=== PATIENT | male | born 2000 | race Caucasian/White ===

== ENCOUNTER 2023-07-20 11:29 | Emergency (ER) | payer OTHER, SELFPAY ==
[2023-07-20 11:38] VITALS: BP 137/74; PULSE 67; RESP 14; TEMP 36.5; O2SAT 98; BMI 29.0
[2023-07-20] MEDS: ONDANSETRON 4 MG ODT PO (11:46)
[2023-07-20 12:04] LABS: COVID19 -Nasal RAPID Negative (Negative)
--- NOTE | 2023-07-20 12:24 | ED.HA ---
HPI - Headache <Stacey Parham PA-C - Last Filed: 07/20/23 13:50> General Chief Complaint: Headache Stated Complaint: headache/Vomiting/overheating Time Seen by Provider: 07/20/23 11:53 Mode of arrival: Ambulatory History of Present Illness HPI Narrative: 23-year-old male with no reported past medical history presents to the ED with 1 day of headache. Patient states that he woke up at 2:00 a.m. this morning for his work shift, head started about 3:00 a.m. and has worsened since then. Patient reports a bilateral, frontal headache accompanied with nausea. Patient endorses 3 episodes of vomiting. Patient denies photophobia, endorses phonophobia. No vision changes. Patient states that he has had headaches in the past, however not recently. Patient denies fever, chills, neck pain, neck stiffness, rhinorrhea, nasal congestion, cough, sore throat. Patient endorses COVID exposure at work from to colleagues were diagnosed with COVID-19. Related Data Home Medications Medication Instructions Recorded Confirmed No Known Home Medications 07/20/23 07/20/23 Allergies Allergy/AdvReac Type Severity Reaction Status Date / Time No Known Drug Allergies Allergy Verified 07/20/23 11:42 Review of Systems <Stacey Parham PA-C - Last Filed: 07/20/23 13:50> Constitutional Constitutional: Denies chills, Denies fatigue, Denies fever(s), Denies frequent falls, Reports headache(s), Denies lethargy and Denies weakness Eyes Eyes: Denies change in vision, Denies eye discharge, Denies irritation and Denies loss of vision ENT Ears, Nose, Mouth, and Throat: Denies change in voice, Denies dizziness, Reports headache(s), Denies neck pain, Denies sore throat and Denies throat swelling Comments: Phonophobia Cardiovascular Cardiovascular: Denies chest pain, Denies irregular heart rhythm, Denies lightheadedness, Denies palpitations, Denies dyspnea, Denies dyspnea on exertion and Denies orthopnea Respiratory Respiratory: Denies cough, Denies dyspnea, Denies dyspnea on exertion and Denies wheezing Gastrointestinal Gastrointestinal: Denies abdominal pain, Denies change in bowel habits, Denies diarrhea, Reports nausea and Reports vomiting Musculoskeletal Musculoskeletal: Denies neck pain and Denies numbness Integumentary/Breasts Skin/Breast: Denies pruritus, Denies erythema, Denies rash and Denies wounds Neurologic Neurologic: Denies behavioral changes, Denies confusion, Denies dizziness, Denies frequent falls, Reports headache(s), Denies loss of vision, Denies numbness and Denies weakness Psychiatric Psychiatric: Denies anxiety, Denies behavioral changes, Denies confusion, Denies depression, Denies homicidal ideation and Denies suicidal ideation Endocrine Endocrine: Denies fatigue, Denies flushing and Denies palpitations Hematologic/Lymphatic Hematologic/Lymphatic: Denies easy bruising Allergic/Immunologic Allergic/Immunologic: Denies urticaria, Denies throat swelling and Denies wheezing Patient History <Stacey Parham PA-C - Last Filed: 07/20/23 13:50> Social History Smoking Status: Never smoker Smoking Status: Never smoker alcohol intake frequency: 0-2 drinks per day Substance Use Type: does not use Exam <Stacey Parham PA-C - Last Filed: 07/20/23 13:50> Narrative Exam Narrative: Const General:?cooperative, healthy appearing and comfortable [facility] Head:?normal to inspection Ears:?hearing grossly normal bilaterally Nose:?external nose normal Face and sinus:?normal facial exam and sinuses nontender Mouth:?oral mucosae normal Throat:?posterior oropharynx normal Eyes General:?appearance normal, both eyes and all related structures Neck Neck:?normal visual inspection and no lymphadenopathy noted Resp Effort & Inspection:?normal respiratory effort Auscultation:?clear to auscultation bilaterally Cardio Rate:?regular rate Rhythm:?regular rhythm Neuro General:?patient alert, patient awake and patient oriented x3; PERRLA; CN 1 through 12 intact bilaterally; gait normal Initial Vital Signs Initial Vital Signs: Vital Signs Temperature 97.7 F 07/20/23 11:38 Pulse Rate 67 07/20/23 11:38 Respiratory Rate 14 07/20/23 11:38 Blood Pressure 137/74 07/20/23 11:38 Pulse Oximetry 98 07/20/23 11:38 Oxygen Delivery Method Room Air 07/20/23 11:38 <Ravi Zarate DO - Last Filed: 07/20/23 14:51> Initial Vital Signs Initial Vital Signs: Vital Signs Temperature 97.7 F 07/20/23 11:38 Pulse Rate 67 07/20/23 11:38 Respiratory Rate 14 07/20/23 11:38 Blood Pressure 137/74 07/20/23 11:38 Pulse Oximetry 98 07/20/23 11:38 Oxygen Delivery Method Room Air 07/20/23 11:38 Course <Stacey Parham PA-C - Last Filed: 07/20/23 13:50> Orders Ordered: ED Orders 07/20/23 11:45 COVID19 -Nasal RAPID Stat Discontinued Medications Acetaminophen (Acetaminophen 325 Mg Tablet) 975 mg PO NOW ONE Stop: 07/20/23 12:19 Last Admin: 07/20/23 12:31 Dose: 975 mg Documented By: Diphenhydramine HCl (Diphenhydramine 50 Mg/Ml Vial) 25 mg IV NOW ONE Stop: 07/20/23 12:19 Last Admin: 07/20/23 12:32 Dose: 25 mg Documented By: Sodium Chloride (Normal Saline 0.9%) 1,000 mls @ 1,000 mls/hr IV BOLUS ONE Stop: 07/20/23 13:17 Last Infusion: 07/20/23 13:22 Dose: Infused Documented By: Admin: 07/20/23 12:37 Dose: 1,000 mls/hr Documented By: Ketorolac Tromethamine (Ketorolac 30 Mg/Ml Vial) 15 mg IV NOW ONE Stop: 07/20/23 12:19 Last Admin: 07/20/23 12:33 Dose: 15 mg Documented By: Metoclopramide HCl (Metoclopramide 10 Mg/2 Ml Inj) 10 mg IV NOW ONE Stop: 07/20/23 12:19 Last Admin: 07/20/23 12:32 Dose: 10 mg Documented By: Ondansetron HCl (Ondansetron 4 Mg Odt) 4 mg PO NOW ONE Stop: 07/20/23 11:44 Last Admin: 07/20/23 11:46 Dose: 4 mg Documented By: SERA Vital Signs Vital signs: Vital Signs - 8 hr 07/20/23 11:38 07/20/23 13:26 Temperature 97.7 F Pulse Rate 67 66 Respiratory Rate 14 16 Blood Pressure 137/74 126/65 Pulse Oximetry 98 100 Oxygen Delivery Method Room Air Room Air <Ravi Zarate DO - Last Filed: 07/20/23 14:51> Orders Ordered: ED Orders 07/20/23 11:45 COVID19 -Nasal RAPID Stat Discontinued Medications Acetaminophen (Acetaminophen 325 Mg Tablet) 975 mg PO NOW ONE Stop: 07/20/23 12:19 Last Admin: 07/20/23 12:31 Dose: 975 mg Documented By: Diphenhydramine HCl (Diphenhydramine 50 Mg/Ml Vial) 25 mg IV NOW ONE Stop: 07/20/23 12:19 Last Admin: 07/20/23 12:32 Dose: 25 mg Documented By: Sodium Chloride (Normal Saline 0.9%) 1,000 mls @ 1,000 mls/hr IV BOLUS ONE Stop: 07/20/23 13:17 Last Infusion: 07/20/23 13:22 Dose: Infused Documented By: Admin: 07/20/23 12:37 Dose: 1,000 mls/hr Documented By: Ketorolac Tromethamine (Ketorolac 30 Mg/Ml Vial) 15 mg IV NOW ONE Stop: 07/20/23 12:19 Last Admin: 07/20/23 12:33 Dose: 15 mg Documented By: Metoclopramide HCl (Metoclopramide 10 Mg/2 Ml Inj) 10 mg IV NOW ONE Stop: 07/20/23 12:19 Last Admin: 07/20/23 12:32 Dose: 10 mg Documented By: Ondansetron HCl (Ondansetron 4 Mg Odt) 4 mg PO NOW ONE Stop: 07/20/23 11:44 Last Admin: 07/20/23 11:46 Dose: 4 mg Documented By: SERA Vital Signs Vital signs: Vital Signs - 8 hr 07/20/23 11:38 07/20/23 13:26 Temperature 97.7 F Pulse Rate 67 66 Respiratory Rate 14 16 Blood Pressure 137/74 126/65 Pulse Oximetry 98 100 Oxygen Delivery Method Room Air Room Air MDM - Headache <Stacey Parham PA-C - Last Filed: 07/20/23 13:50> Lab Data Labs: Lab Results 07/20/23 Range/Units 11:45 SARS-CoV-2 (PCR) Negative (Negative) MDM Narrative Medical decision making narrative: 23-year-old male with no reported past medical history presents to the ED with 1 day of headache. Concern for COVID-19 infection versus primary headache versus other. COVID-19 test was negative. Patient's symptoms most consistent with a primary headache. Will treat with IV fluids, Reglan, ketorolac, Tylenol, Benadryl. Will reassess. Patient's symptoms resolved with medications. Recommend follow-up with PCP as soon as possible. ED return precautions were discussed with patient. Patient verbalized understanding. Medical records reviewed: Yes <Ravi Zarate DO - Last Filed: 07/20/23 14:51> Lab Data Labs: Lab Results 07/20/23 Range/Units 11:45 SARS-CoV-2 (PCR) Negative (Negative) Discharge Plan Departure Patient Disposition: Home Clinical Impression: Headache Instructions: DI for Headache Activity Restrictions/Additional Instructions: You were evaluated in the ED today for a headache. Your symptoms resolved with administration of IV fluids, Reglan, ketorolac, Tylenol, Benadryl. Please continue to stay well hydrated. You may also take Tylenol or ibuprofen if your symptoms recur. Please follow-up with your PCP as soon as possible. Return to the ED if you have worsening symptoms, persistent vomiting. Prescriptions: No Action No Known Home Medications Referrals: Provider,Prieto GOMEZ [Primary Care Provider] - Stand Alone Forms: Patient Portal/API, Work Release Note ED Sign-out <DO Jorge Carvajal Filed: 07/20/23 14:51> Cosign ED Attending Cosignature Attestation: Dr Zarate Co-Sign Statement: I was available for consultation during this patient's emergency department visit. This chart is signed by myself for administrative purposes only. I did not have direct contact with this patient during this visit. They were seen independently by the APC.
[2023-07-20] MEDS: ACETAMINOPHEN 325 MG TABLET 975 MG PO (12:31)
[2023-07-20] MEDS: METOCLOPRAMIDE 10 MG/2 ML INJ IV (12:32)
[2023-07-20] MEDS: diphenhydrAMINE 50 MG/ML VIAL 25 MG IV (12:32)
[2023-07-20] MEDS: KETOROLAC 30 MG/ML VIAL 15 MG IV (12:33)
[2023-07-20] MEDS: SODIUM CHLORIDE 0.9% 1,000 ML 1000 ML IV (12:37)
[2023-07-20 13:26] VITALS: BP 126/65; PULSE 66; RESP 16; O2SAT 100
== END 2023-07-20 13:37 | disposition home or self-care (01) ==
PROVIDERS: Emergency Medicine; Emergency Provider Student in an Organized Health Care Education/Training Program
DX: R51.9 Headache, unspecified (principal); Z20.822 Contact with and (suspected) exposure to COVID-19
CPT/HCPCS: 87635; 96361; 96374; 96375; 99284; C9803; J1200; J1885; J2765

== ENCOUNTER 2024-01-30 23:50 | Emergency (ER) | payer OTHER, SELFPAY ==
[2024-01-30 23:54] VITALS: BP 159/101; PULSE 82; RESP 20; TEMP 36.6; O2SAT 99; BMI 28.8
--- NOTE | 2024-01-30 23:56 | ED.PSYCH ---
HPI - Psych <Yanet Painter DO - Last Filed: 02/01/24 00:51> General Chief Complaint: Psychiatric Symptoms Stated Complaint: SI Time Seen by Provider: 01/30/24 23:55 Source: patient, RN notes reviewed and old records reviewed Mode of arrival: Ambulatory Limitations: no limitations History of Present Illness HPI Narrative: 23-year-old with history of depressive symptoms for the past 8 months recently started on Prozac 2 days ago has had 2 doses total and started counseling in the last week. Patient states he has had thoughts of suicide but with increasing frequency over the past several months. He describes increasingly intrusive thoughts. 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 He states no wish or thoughts to harm others. Patient states symptoms are worse at work he states does not feel particularly supported although he presents with 2 friends from work who he states are very supportive. He states he feels better when he is at home with his and does not have these thoughts or these feelings. He denies any hallucinations. Patient states he did have one prior episode when he 1st in the where he was quite depressed but never sought help. Patient states otherwise he has never had any treatment or ever been inpatient. He feels the most helpful thing would be to remove himself from his current work situation. He is unsure about inpatient stay. He is never taken any regular medications. He has not on any prescription medications, only surgeries prior include wisdom teeth. No tobacco, occasional alcohol but none recently. No marijuana or street drugs. Related Data Home Medications Medication Instructions Recorded Confirmed No Known Home Medications 07/20/23 07/20/23 Allergies Allergy/AdvReac Type Severity Reaction Status Date / Time No Known Drug Allergies Allergy Verified 01/30/24 23:54 Review of Systems <Yanet Painter DO - Last Filed: 02/01/24 00:51> Review of Systems ROS Unobtainable: All systems reviewed & are unremarkable except as noted in HPI and below Patient History <Yanet Painter DO - Last Filed: 02/01/24 00:51> Social History Smoking Status: Never smoker Smoking Status: Never smoker alcohol intake frequency: 0-2 drinks per day Substance Use Type: does not use Exam <Yanet Painter DO - Last Filed: 02/01/24 00:51> Narrative Exam Narrative: GENERAL: Alert and oriented x three, male in moderate distress. Patient is tearful during discussion. HEENT: Head normocephalic, atraumatic, EOMI, pupils reactive, face symmetric, moist mucous membranes NECK: Supple, full range of motion CARDIOVASCULAR: Regular rate and rhythm without murmurs, rubs or gallops. RESPIRATORY: Breath sounds equal bilaterally, no wheezes rales or rhonchi. ABDOMEN: Soft, nontender. Normoactive bowel sounds all 4 quadrants. No guarding or rebound, rigidity, no mass : No CVA tenderness EXTREMITIES: Normal range of motion, no clubbing or edema. Neurovascularly intact NEUROLOGICAL: Cranial nerves II through XII grossly intact. Moving all extremities SKIN: Warm, dry, no petechiae, no rashes or lesions. PSYCH: Suicidal ideation with intrusive thoughts, no homicidal ideation or intent. No hallucinations. Initial Vital Signs Initial Vital Signs: Vital Signs Temperature 97.8 F 01/30/24 23:54 Pulse Rate 82 01/30/24 23:54 Respiratory Rate 20 01/30/24 23:54 Blood Pressure 159/101 H 01/30/24 23:54 Pulse Oximetry 99 01/30/24 23:54 Oxygen Delivery Method Room Air 01/30/24 23:54 <Mitchell Chapman MD - Last Filed: 01/31/24 16:33> Initial Vital Signs Initial Vital Signs: Vital Signs Temperature 97.8 F 01/30/24 23:54 Pulse Rate 82 01/30/24 23:54 Respiratory Rate 20 01/30/24 23:54 Blood Pressure 159/101 H 01/30/24 23:54 Pulse Oximetry 99 01/30/24 23:54 Oxygen Delivery Method Room Air 01/30/24 23:54 Course <Yanet Painter DO - Last Filed: 02/01/24 00:51> Orders Ordered: Discontinued Medications Lorazepam (Lorazepam 0.5 Mg Tablet) 1 mg PO NOW ONE Stop: 01/31/24 00:15 Last Admin: 01/31/24 00:28 Dose: 1 mg Documented By: CF Vital Signs Vital signs: Vital Signs - 8 hr 01/31/24 08:47 01/31/24 12:29 Pulse Rate 76 98 H Respiratory Rate 16 16 Blood Pressure 143/76 H 132/89 Pulse Oximetry 100 98 Oxygen Delivery Method Room Air Room Air <Mitchell Chapman MD - Last Filed: 01/31/24 16:33> Orders Ordered: Discontinued Medications Lorazepam (Lorazepam 0.5 Mg Tablet) 1 mg PO NOW ONE Stop: 01/31/24 00:15 Last Admin: 01/31/24 00:28 Dose: 1 mg Documented By: CF Vital Signs Vital signs: Vital Signs - 8 hr 01/31/24 08:47 01/31/24 12:29 Pulse Rate 76 98 H Respiratory Rate 16 16 Blood Pressure 143/76 H 132/89 Pulse Oximetry 100 98 Oxygen Delivery Method Room Air Room Air MDM - Psych <Yanet Painter DO - Last Filed: 02/01/24 00:51> Lab Data 01/31/24 00:36 01/31/24 00:36 Labs: Lab Results 01/31/24 01/31/24 Range/Units 00:36 02:05 WBC 10.4 (4.5-11.0) X10^3/uL RBC 5.29 (4.5-5.9) X10^6/uL Hgb 15.1 (13.5-17.5) g/dL Hct 43.0 (41-53) % MCV 81.3 (80-100) fL MCH 28.6 (26-34) PG MCHC 35.2 (30-36) % RDW 13.0 (11.6-14.8) % Plt Count 322 (150-400) X10^3/uL Neut % (Auto) 69.9 (50-75) % Lymph % (Auto) 20.8 L (25-40) % [place] % (Auto) 7.5 (3-14) % Eos % (Auto) 1.5 L (2-4) % Baso % (Auto) 0.3 (0-2) % Neut # (Auto) 7300 H (9473-8882) /uL Lymph # (Auto) 2200 (3002-8495) /uL [place] # (Auto) 800 (0-900) /uL Eos # (Auto) 200 (0-450) /uL Baso # (Auto) 0 (0-100) /uL Sodium 139 (137-145) mmol/L Potassium 3.8 (3.4-5.1) mmol/L Chloride 110 H (98-107) mmol/L Carbon Dioxide 23 (22-32) mmol/L BUN 13 (9-20) mg/dL Creatinine 0.96 (0.66-1.25) mg/dL Estimated GFR > 60 (>60) mL/min BUN/Creatinine Ratio 13.5 (6-22) Glucose 109 H (70-100) mg/dL Calcium 9.5 (8.4-10.2) mg/dL Total Bilirubin 1.0 (0.2-1.3) mg/dL AST 24 (17-59) IU/L ALT 22 (<50) IU/L Alkaline Phosphatase 96 (38-126) U/L Total Protein 7.4 (6.3-8.2) g/dL Albumin 4.6 (3.5-5.0) g/dL Globulin 2.8 (1.7-4.1) g/dL Albumin/Globulin Ratio 1.6 (1.0-2.8) TSH 1.28 (0.47-4.68) uIU/mL Salicylates < 1.0 (<20) mg/dL U Opiates 300ng/mL cut Negative (Negative) Ur Oxycodone Screen Negative (Negative) Urine Methadone Screen Negative (Negative) Acetaminophen < 10 (10-30) ug/mL Ur Barbiturates Screen Negative (Negative) U Tricyclic Antidepress Negative (Negative) Ur Phencyclidine Scrn Negative (Negative) Ur Amphetamines Screen Negative (Negative) U Methamphetamines Scrn Negative (Negative) Ur MDMA Scrn (Ecstasy) Negative (Negative) U Benzodiazepines Scrn Negative (Negative) Urine Cocaine Screen Negative (Negative) U Marijuana (THC) Screen Negative (Negative) Urine pH TNP Urine Specific [place] TNP Ethyl Alcohol < 10 ( - 10) mg/dL Ur Creatinine TNP MDM Narrative Medical decision making narrative: 23-year-old male with about 8 months of suicidal ideation with increasing intensity and frequency which he started describes becoming intrusive was recently started on Prozac in his only had 2 doses total. Patient states symptoms are considerably worse today and he reached out to friends who brought him here. Patient notes there is a situational component to feeling unsupported at work and then what he is at home he actually safer and has less thoughts and does not wish to harm himself at home. He finds support from his . He has 2 friends here he describes as supportive. Has never had any inpatient stays. He describes thoughts that are intrusive but without intent. He does have access to firearms at work. Labs Show chloride 10 otherwise appropriate, Urine drug screen is negative. Patient is medically cleared. Patient was given a dose of oral Ativan. Discussed with patient plan to meet with ACCOUNTS PAYABLE TECHNICIAN in the morning. Patient does note good support with his spouse. He has recently initiated counseling, has had 2 doses of Prozac which may be having an activated and affect as well. Does note that he was brought here by 2 work friends who he finds supportive and helpful. also arrived. Patient signed out to Dr. Chapman while awaiting evaluation with ACCOUNTS PAYABLE TECHNICIAN. <Mitchell Chapman MD - Last Filed: 01/31/24 16:33> Lab Data Labs: Lab Results 01/31/24 01/31/24 Range/Units 00:36 02:05 WBC 10.4 (4.5-11.0) X10^3/uL RBC 5.29 (4.5-5.9) X10^6/uL Hgb 15.1 (13.5-17.5) g/dL Hct 43.0 (41-53) % MCV 81.3 (80-100) fL MCH 28.6 (26-34) PG MCHC 35.2 (30-36) % RDW 13.0 (11.6-14.8) % Plt Count 322 (150-400) X10^3/uL Neut % (Auto) 69.9 (50-75) % Lymph % (Auto) 20.8 L (25-40) % [place] % (Auto) 7.5 (3-14) % Eos % (Auto) 1.5 L (2-4) % Baso % (Auto) 0.3 (0-2) % Neut # (Auto) 7300 H (7145-2608) /uL Lymph # (Auto) 2200 (4605-0798) /uL [place] # (Auto) 800 (0-900) /uL Eos # (Auto) 200 (0-450) /uL Baso # (Auto) 0 (0-100) /uL Sodium 139 (137-145) mmol/L Potassium 3.8 (3.4-5.1) mmol/L Chloride 110 H (98-107) mmol/L Carbon Dioxide 23 (22-32) mmol/L BUN 13 (9-20) mg/dL Creatinine 0.96 (0.66-1.25) mg/dL Estimated GFR > 60 (>60) mL/min BUN/Creatinine Ratio 13.5 (6-22) Glucose 109 H (70-100) mg/dL Calcium 9.5 (8.4-10.2) mg/dL Total Bilirubin 1.0 (0.2-1.3) mg/dL AST 24 (17-59) IU/L ALT 22 (<50) IU/L Alkaline Phosphatase 96 (38-126) U/L Total Protein 7.4 (6.3-8.2) g/dL Albumin 4.6 (3.5-5.0) g/dL Globulin 2.8 (1.7-4.1) g/dL Albumin/Globulin Ratio 1.6 (1.0-2.8) TSH 1.28 (0.47-4.68) uIU/mL Salicylates < 1.0 (<20) mg/dL U Opiates 300ng/mL cut Negative (Negative) Ur Oxycodone Screen Negative (Negative) Urine Methadone Screen Negative (Negative) Acetaminophen < 10 (10-30) ug/mL Ur Barbiturates Screen Negative (Negative) U Tricyclic Antidepress Negative (Negative) Ur Phencyclidine Scrn Negative (Negative) Ur Amphetamines Screen Negative (Negative) U Methamphetamines Scrn Negative (Negative) Ur MDMA Scrn (Ecstasy) Negative (Negative) U Benzodiazepines Scrn Negative (Negative) Urine Cocaine Screen Negative (Negative) U Marijuana (THC) Screen Negative (Negative) Urine pH TNP Urine Specific [place] TNP Ethyl Alcohol < 10 ( - 10) mg/dL Ur Creatinine TNP MDM Narrative Medical decision making narrative: 23-year-old male with about 8 months of suicidal ideation with increasing intensity and frequency which he started describes becoming intrusive was recently started on Prozac in his only had 2 doses total. Patient states symptoms are considerably worse today and he reached out to friends who brought him here. Patient notes there is a situational component to feeling unsupported at work and then what he is at home he actually safer and has less thoughts and does not wish to harm himself at home. He finds support from his . He has 2 friends here he describes as supportive. Has never had any inpatient stays. He describes thoughts that are intrusive but without intent. He does have access to firearms at work. Labs Show chloride 10 otherwise appropriate, Urine drug screen is negative. Patient is medically cleared. Patient was given a dose of oral Ativan. Discussed with patient plan to meet with ACCOUNTS PAYABLE TECHNICIAN in the morning. Patient does note good support with his spouse. He has recently initiated counseling, has had 2 doses of Prozac which may be having an activated and affect as well. Does note that he was brought here by 2 work friends who he finds supportive and helpful. also arrived. Patient signed out to Dr. Chapman while awaiting evaluation with ACCOUNTS PAYABLE TECHNICIAN. January 31, 2024 at 7:00 a.m Ari: ?sign out from Dr Painter patient is voluntary. Labs are completed. Patient is medically clear. Awaiting for social work. Patient is moderate risk however has no intention of hurting himself or any plans. 7:30 a.m.. Spoke with patient and he does agree and understand need for social work evaluation this morning. Has no further complaints at this time. 11:00 a.m. Kayla, social work seeing patient and for evaluation 12:15 p.m.. Kayla has spoken with patient and . Contract for safety established. Patient denies denies SI or HI at this time. They do agree for discharge home and are comfortable with this. 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 I did update patient that the medication he just started 2 days ago may take up to 2-5 weeks to be effective. He does understand. Again, does not want to hurt himself or others at this time. He desires discharge home Discharge Plan Departure Patient Disposition: Home Clinical Impression: Suicidal ideation, Acute anxiety Clinical Impression: (Ruled Out): Acute psychosis Instructions: DI for Anxiety -- Adult, How to Create a Suicide Prevention Safety Plan Activity Restrictions/Additional Instructions: Please see your provider and counselor this week. Continue home medications. Work note has been provided for you. Return immediately if worse if any questions or concerns. Today's laboratory studies are reassuring. Your new medication will take up to 4-5 weeks to be effective. Please do continue taking it. Prescriptions: No Action No Known Home Medications Referrals: Provider,Prieto GOMEZ [Primary Care Provider] - Stand Alone Forms: Patient Portal/API, Work Release Note
[2024-01-31] MEDS: LORazepam 0.5 MG TABLET 1 MG PO (00:28)
[2024-01-31 00:48] LABS: Add Manual Diff / Slide Review NO; Basophils Absolute Auto 0 /uL (0-100); Basophils Percent Auto 0.3 % (0-2); Eosinophils Absolute Auto 200 /uL (0-450); Eosinophils Percent Auto 1.5 % (2-4); Hemoglobin 15.1 g/dL (13.5-17.5); Lymphocytes Absolute Auto 2200 /uL (1100-4500); Lymphocytes Percent Auto 20.8 % (25-40); Mean Corpuscular HGB Conc 35.2 % (30-36); Mean Corpuscular Hemoglobin 28.6 PG (26-34); Mean Corpuscular Volume 81.3 fL (80-100); Monocytes Absolute Auto 800 /uL (0-900); Monocytes Percent Auto 7.5 % (3-14); Neutrophils Absolute Auto 7300 /uL (1500-7000); Neutrophils Percent Auto 69.9 % (50-75); Platelet Count 322 X10^3/uL (150-400); Red Blood Cell Count 5.29 X10^6/uL (4.5-5.9); White Blood Cell Count 10.4 X10^3/uL (4.5-11.0)
[2024-01-31 00:57] LABS: Acetaminophen < 10 ug/mL (10-30); Alanine Aminotransferase 22 IU/L (<50); Albumin 4.6 g/dL (3.5-5.0); Albumin Globulin Ratio 1.6 (1.0-2.8); Alkaline Phosphatase 96 U/L (38-126); Aspartate Aminotransferase 24 IU/L (17-59); BUN Creatinine Ratio 13.5 (6-22); Blood Urea Nitrogen 13 mg/dL (9-20); Calcium 9.5 mg/dL (8.4-10.2); Carbon Dioxide 23 mmol/L (22-32); Chloride 110 mmol/L (98-107); Estimated Glomerular Filt Rate > 60 mL/min (>60); Ethanol (ETOH) < 10 mg/dL; Globulin 2.8 g/dL (1.7-4.1); Glucose 109 mg/dL (70-100); HEMOLYSIS < 15 (0-50); Potassium 3.8 mmol/L (3.4-5.1); Salicylate < 1.0 mg/dL (<20); Sodium 139 mmol/L (137-145); Total Protein 7.4 g/dL (6.3-8.2)
[2024-01-31 02:05] LABS: TSH w/ Reflex to FT4 1.28 uIU/mL (0.47-4.68)
[2024-01-31 02:29] LABS: Urine Amphetamines Negative (Negative); Urine Barbiturates Negative (Negative); Urine Benzodiazepines Negative (Negative); Urine Cocaine Negative (Negative); Urine MDMA Negative (Negative); Urine Methadone Negative (Negative); Urine Methamphetamines Negative (Negative); Urine Opiates Negative (Negative); Urine Oxycodone Negative (Negative); Urine Phencyclidine Negative (Negative); Urine THC Negative (Negative); Urine Tricyclic Antidepressant Negative (Negative)
--- NOTE | 2024-01-31 07:26 | PC.NURSE ---
Report received, care assumed. Pt lying on side in stretcher, appears to be sleeping, equal chest rise and fall noted, nad. visitor at bedside, also sleeping. 15min safety checks in place by chemical technician.
--- NOTE | 2024-01-31 08:13 | PC.NURSE ---
morning safety tray requested for patient from dietary
--- NOTE | 2024-01-31 08:46 | PC.NURSE ---
pt awake for breakfast; alert, oriented, no acute distress, calm, cooperative w/ VS assessment. Currently denies SI/HI/AVH. denies pain/needs. safety breakfast tray provided. [address] checks in [address].
[2024-01-31 08:47] VITALS: BP 143/76; PULSE 76; RESP 16; O2SAT 100
--- NOTE | 2024-01-31 11:34 | PC.NURSE ---
FREIGHT WEIGHER NOTE: ARCHITECTURAL DRAFTING INSTRUCTOR with patient and spouse
--- NOTE | 2024-01-31 11:39 | PC.NURSE ---
TARIQ Garza made aware of patient job and access to guns. Kayla is at bedside.
[2024-01-31 12:29] VITALS: BP 132/89; PULSE 98; RESP 16; O2SAT 98
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
== END 2024-01-31 12:32 | disposition home or self-care (01) ==
PROVIDERS: Emergency Medicine; Emergency Provider Emergency Medicine
DX: R45.851 Suicidal ideations (principal); F41.9 Anxiety disorder, unspecified
CPT/HCPCS: 36415; 80053; 80305; 80320; 80329; 84443; 85025; 99284; G0480